=== PATIENT | female | born 1965 | race Caucasian/White ===

== ENCOUNTER → 2016-07-14 | Outpatient (CLI) | payer MEDICARE ==
[~2016-07-14] MED LIST: BUPR150T11 PO; HYDR12.553 PO; LISI-334 PO; OMEP20CA9 PO; OXYC1TAB8 PO; SERT100T PO; WARF4TAB PO
[2016-07-14 10:25] VITALS: BP 128/78
--- NOTE | 2016-07-14 13:29 | RAD ---
Indication nonhealing wound. AP oblique and lateral views of the right foot were obtained. 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 There is some soft tissue swelling. An acute bony finding is not seen. Plain film findings of osteomyelitis are not seen.
== END | disposition home or self-care (01) ==
LOC: RAD 11:12
PROVIDERS: ATTEND Emergency Medicine Undersea and Hyperbaric Medicine
DX: L97.519 Non-pressure chronic ulcer of other part of right foot with unspecified severity (principal); M79.89 Other specified soft tissue disorders
CPT/HCPCS: 73630

== ENCOUNTER → 2016-08-20 | Outpatient (CLI) | payer MEDICARE ==
[2016-08-11 10:18] VITALS: BP 146/79
== END | disposition home or self-care (01) ==
LOC: PMGWOUND 09:43
PROVIDERS: ATTEND Emergency Medicine Undersea and Hyperbaric Medicine
DX: I87.311 Chronic venous hypertension (idiopathic) with ulcer of right lower extremity (principal); L97.412 Non-pressure chronic ulcer of right heel and midfoot with fat layer exposed; L97.812 Non-pressure chronic ulcer of other part of right lower leg with fat layer exposed; L97.311 Non-pressure chronic ulcer of right ankle limited to breakdown of skin; J44.9 Chronic obstructive pulmonary disease, unspecified; F17.210 Nicotine dependence, cigarettes, uncomplicated; Z95.1 Presence of aortocoronary bypass graft; Z89.421 Acquired absence of other right toe(s)
CPT/HCPCS: 99214

== ENCOUNTER → 2016-09-03 | Outpatient (CLI) | payer MEDICARE ==
[2016-08-11 10:18] VITALS: BP 146/79
== END | disposition home or self-care (01) ==
LOC: PMGWOUND 09:49
PROVIDERS: ATTEND Emergency Medicine Undersea and Hyperbaric Medicine
DX: I87.311 Chronic venous hypertension (idiopathic) with ulcer of right lower extremity (principal); L97.412 Non-pressure chronic ulcer of right heel and midfoot with fat layer exposed; L97.812 Non-pressure chronic ulcer of other part of right lower leg with fat layer exposed; J44.9 Chronic obstructive pulmonary disease, unspecified; F17.210 Nicotine dependence, cigarettes, uncomplicated; Z72.89 Other problems related to lifestyle; Z89.421 Acquired absence of other right toe(s); Z95.1 Presence of aortocoronary bypass graft
CPT/HCPCS: 99214

== ENCOUNTER → 2016-09-15 | Outpatient (CLI) | payer MEDICARE ==
[2016-08-11 10:18] VITALS: BP 146/79
== END | disposition home or self-care (01) ==
LOC: PMGWOUND 09:52
PROVIDERS: ATTEND Emergency Medicine Undersea and Hyperbaric Medicine
DX: I87.311 Chronic venous hypertension (idiopathic) with ulcer of right lower extremity (principal); L97.412 Non-pressure chronic ulcer of right heel and midfoot with fat layer exposed; L97.312 Non-pressure chronic ulcer of right ankle with fat layer exposed; F17.210 Nicotine dependence, cigarettes, uncomplicated; Z72.89 Other problems related to lifestyle; Z95.1 Presence of aortocoronary bypass graft; Z89.421 Acquired absence of other right toe(s)
CPT/HCPCS: 99214